=== PATIENT | female | born 2005 | race Caucasian/White ===

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

== ENCOUNTER 2024-03-30 15:15 | Outpatient (REF) | payer SELFPAY | END 2024-03-30 15:16 | disposition home or self-care (01) | LOC: LBN 15:15 | PROVIDERS: PCP Nurse Practitioner Family; Visit Provider Nurse Practitioner Family | DX: N30.01 Acute cystitis with hematuria (principal) | CPT/HCPCS: 87086 ==

== ENCOUNTER 2024-10-21 14:59 | Outpatient (REF) | payer SELFPAY | END 2024-10-21 15:00 | disposition home or self-care (01) | LOC: LBN 14:59 | PROVIDERS: PCP Nurse Practitioner Family; Visit Provider Physician Assistant Medical | DX: R30.0 Dysuria (principal) | CPT/HCPCS: 81015; 87086 ==